=== PATIENT | male | born 1975 | race Caucasian/White ===

== ENCOUNTER 2018-08-31 12:59 | Day surgery (SDC) | payer BC ==
[2018-08-31] MEDS ORDERED: PROPOFOL 10 MG/ML 200 MG/20 ML EMU IV ONE ×2 (13:04→14:34)
[2018-08-31] MEDS ORDERED: MIDAZOLAM 2 MG/2 ML SOL ONE (13:04)
[2018-08-31] MEDS ORDERED: ONDANSETRON HCL 4 MG/2 ML SOL ONE (13:04)
[2018-08-31] MEDS ORDERED: LIDOCAINE HCL 1% MPF 30 SOL ONE (13:04)
[2018-08-31] MEDS ORDERED: FENTANYL 100MCG/2ML SOL ONE (13:04)
[2018-08-31] MEDS ORDERED: CEFAZOLIN SODIUM 1 GM PDS ONE (13:48)
[2018-08-31] MEDS ORDERED: HYDROMORPHONE 1 MG/ML SYRINGE ONE (14:21)
[2018-08-31] MEDS ORDERED: DEXAMETHASONE 20 MG/5 ML (4 MG/ML SOL) ONE (14:28)
[2018-08-31 15:48] VITALS: BP 117/77; PULSE 67; RESP 14; TEMP 97.2; O2SAT 98
== END 2018-08-31 16:05 | disposition home or self-care (01) ==
LOC: SURG 12:59
PROVIDERS: ATTEND Orthopaedic Surgery
DX: M25.562 Pain in left knee (principal)
CPT/HCPCS: J0690; J1100; J2250; J2405; J3010; J1170; J2001; J2704

== ENCOUNTER 2018-10-26 04:52 | Emergency (ER) | payer BC ==
[2018-10-26 05:07] VITALS: BP 157/89; PULSE 118; RESP 16; TEMP 98.3; O2SAT 94
[2018-10-26] MEDS ORDERED: IBUPROFEN 400 MG TAB ONE (05:23)
[2018-10-26] MEDS ORDERED: IBUPROFEN 400 MG TAB PO ONE (05:23)
[2018-10-26 05:44] LABS: INFLUENZA A NEGATIVE (NEGATIVE); INFLUENZA B NEGATIVE (NEGATIVE)
[2018-10-26] MEDS ORDERED: PREDNISONE 20 MG TAB PO ONE (05:58)
[2018-10-26] MEDS ORDERED: PREDNISONE 20 MG TAB ONE (06:00)
== END 2018-10-26 06:03 | disposition home or self-care (01) ==
LOC: ED 04:52
DX: J02.9 Acute pharyngitis, unspecified (principal)
CPT/HCPCS: 87430; 87804; 99282; A9270-GY